=== PATIENT | female | born 1950 | race American Indian/Alaskan Native ===

== ENCOUNTER 2017-12-13 09:02 | Outpatient (CLI) | payer OTHER ==
--- NOTE | 2017-12-19 10:27 | Vascular Lab Report ---
LOWER EXTREMITY VENOUS DUPLEX: REASON FOR EXAM: Left leg inflammation. COMMENTS ON THE RIGHT: All veins visualized are freely compressible without evidence of internal echogenicity. Flow is spontaneous and phasic throughout. A refluxed study was done of the greater saphenous veins. There is 0.63 seconds of reflux in the proximal greater saphenous vein. Maximum diameter of the greater saphenous vein in the thigh is 5.6 mm. Small saphenous vein is patent without evidence of reflux. Deep venous reflux of 2.03 seconds is noted in the common femoral vein. COMMENTS ON THE LEFT: All veins visualized are freely compressible without evidence of internal echogenicity. Flow is spontaneous and phasic throughout. A refluxed study was done of the greater saphenous vein. There is 0.78 seconds of reflux in the greater saphenous vein proximally. Maximum diameter of the vein is 5.5 mm in the upper thigh. The lesser saphenous vein is patent with a maximum diameter 5.9 mm but no reflux was identified. Deep venous reflux of 3.93 seconds was noted in the common femoral vein. IMPRESSION: No evidence of acute or chronic deep venous thrombosis in either lower extremity. Significant greater saphenous vein reflux is noted bilaterally. Lesser saphenous vein reflux is not present. However, the left lesser saphenous vein is larger than expected. Common femoral vein reflux which is significant is noted bilaterally.
== END 2017-12-13 09:03 | disposition home or self-care (01) ==
LOC: VAS 09:02
PROVIDERS: ATTEND Surgery Vascular Surgery
DX: I65.23 Occlusion and stenosis of bilateral carotid arteries (principal); I87.323 Chronic venous hypertension (idiopathic) with inflammation of bilateral lower extremity
CPT/HCPCS: 93880; 93970